=== PATIENT | female | born 2000 | race Two or more races ===

== ENCOUNTER 2023-02-14 11:34 | Emergency (ER) | payer OTHER ==
[~2023-02-14] VITALS: Ht 170.2 cm; Wt 70.8 kg
== END 2023-02-14 14:27 | disposition home or self-care (01) ==
LOC: ER 11:34
DX: R21 Rash and other nonspecific skin eruption (principal)

== ENCOUNTER 2023-12-29 08:18 | Outpatient (CLI) | payer OTHER | END 2023-12-29 08:22 | disposition home or self-care (01) | LOC: PRENATAL 08:18 | PROVIDERS: ATTEND Obstetrics & Gynecology Maternal & Fetal Medicine | DX: O35.9XX0 Maternal care for (suspected) fetal abnormality and damage, unspecified, not applicable or unspecified (principal); O44.00 Complete placenta previa NOS or without hemorrhage, unspecified trimester; O35.3XX0 Maternal care for (suspected) damage to fetus from viral disease in mother, not applicable or unspecified; Z3A.20 20 weeks gestation of pregnancy ==

== ENCOUNTER 2024-02-23 13:36 | Outpatient (CLI) | payer OTHER | END 2024-02-23 13:38 | disposition home or self-care (01) | LOC: PRENATAL 13:36 | PROVIDERS: ATTEND Obstetrics & Gynecology Maternal & Fetal Medicine | DX: O26.849 Uterine size-date discrepancy, unspecified trimester (principal); Z3A.28 28 weeks gestation of pregnancy ==

== ENCOUNTER 2025-04-08 08:41 | Outpatient (CLI) | payer OTHER | END 2025-04-08 08:42 | disposition home or self-care (01) | LOC: PRENATAL 08:41 | PROVIDERS: ATTEND Obstetrics & Gynecology Maternal & Fetal Medicine | DX: O36.80X0 Pregnancy with inconclusive fetal viability, not applicable or unspecified (principal); Z36.82 Encounter for antenatal screening for nuchal translucency; Z14.8 Genetic carrier of other disease; Z3A.12 12 weeks gestation of pregnancy ==

== ENCOUNTER 2025-06-03 08:28 | Outpatient (CLI) | payer OTHER | END 2025-06-03 08:31 | disposition home or self-care (01) | LOC: PRENATAL 08:28 | PROVIDERS: ATTEND Obstetrics & Gynecology Maternal & Fetal Medicine | DX: O44.00 Complete placenta previa NOS or without hemorrhage, unspecified trimester (principal); O43.90 Unspecified placental disorder, unspecified trimester; Z3A.20 20 weeks gestation of pregnancy ==

== ENCOUNTER 2025-08-04 13:11 | Outpatient (CLI) | payer OTHER | END 2025-08-04 13:13 | disposition home or self-care (01) | LOC: PRENATAL 13:11 | PROVIDERS: ATTEND Obstetrics & Gynecology Maternal & Fetal Medicine | DX: O26.849 Uterine size-date discrepancy, unspecified trimester (principal); O43.90 Unspecified placental disorder, unspecified trimester; Z3A.30 30 weeks gestation of pregnancy ==

== ENCOUNTER 2025-09-09 09:07 | Outpatient (CLI) | payer OTHER | END 2025-09-09 09:08 | disposition home or self-care (01) | LOC: PRENATAL 09:07 | PROVIDERS: ATTEND Obstetrics & Gynecology Maternal & Fetal Medicine | DX: O26.849 Uterine size-date discrepancy, unspecified trimester (principal); O36.8130 Decreased fetal movements, third trimester, not applicable or unspecified; O43.90 Unspecified placental disorder, unspecified trimester; Z3A.34 34 weeks gestation of pregnancy ==

== ENCOUNTER 2025-10-10 09:36 | Inpatient (IN) | payer OTHER ==
[2025-10-10] VITALS (8 sets, daily range): BP systolic 109–144; BP diastolic 50–76
[~2025-10-10] VITALS: Ht 170.2 cm; Wt 92.5 kg
[2025-10-10] MEDS ORDERED: RINGERS SOLUTION,LACTATED 1,000 ML IV SCH (09:45)
[2025-10-10] MEDS ORDERED: OXYTOCIN 500 ML IV ONE (09:45)
[2025-10-10] MEDS ORDERED: AMPICILLIN SODIUM 2,000 MG VIAL IV ONE (09:45)
[2025-10-10 10:14] LABS: BASO % 0.2 % (0.1-1.2); EOS # 0.06 (0.04-0.54); EOS % 0.7 % (0.7-7.0); LYMPH # 1.64 (1.18-3.74); LYMPH % 18.3 % (19.3-53.1); MEAN PLATELET VOLUME 12.30 fl (9.4-12.4); MONO # 0.72 (0.24-0.82); MONO % 8.0 % (4.7-12.5); NEUT # 6.44 (1.56-6.13); NEUT % 72.0 % (34.0-71.1); RED CELL DISTRIBUTION WIDTH 13.4 % (11.6-14.4)
[2025-10-10 10:20] LABS: URINE APPEARANCE Clear; URINE BILIRRUBIN Negative (NEGATIVE); URINE BLOOD Negative; URINE COLOR Dark Yellow; URINE GLUCOSE Negative (NEGATIVE); URINE KETONE Negative (NEGATIVE); URINE LEUKOCYTE Trace; URINE NITRATE Negative; URINE PROTEIN Trace (NEGATIVE); URINE UROBILINOGEN 0.2 E.U./dl
[2025-10-10 10:32] LABS: URINE BACTERIA 797.9 uL (0.0-1933); URINE EPITHELIAL CELLS 99.6 uL (0.0-38.8); URINE RBC 2.7 uL (0.0-20.8); URINE WBC 27.2 uL (0.0-23.2)
[2025-10-10 10:46] LABS: URINE CAST 0.14 uL (0.0-1.40)
[2025-10-10 10:50] LABS: INR 0.95
[2025-10-10 11:05] LABS: ALT/SGPT 17.0 U/L (12-78); AST/SGOT 32.0 U/L (15-37); BILIRUBIN TOTAL 0.39 mg/dL (0.3-1.2); BUN CREA RATIO 17.0 (7.0-25.0); CREATININE SERUM 0.46 mg/dL (0.55-1.02); GFR 166.89; GLOBULINA 3.5 G/DL (2.4-3.5); GLUCOSE FASTING 74.0 mg/dL (65-100); OSMOLALITY SERUM 275.0 MOSM/KG (275-295)
[2025-10-10] MEDS ORDERED: AMPICILLIN SODIUM 1,000 MG VIAL IV SCH (13:00)
[2025-10-10] MEDS ORDERED: OXYTOCIN 10 UNITS/ML VIAL ONE (18:46)
[2025-10-10] MEDS ORDERED: CHLORHEXIDINE GLUCONATE 120 ML BOTTLE TOP ONE (18:46)
[2025-10-10] MEDS ORDERED: ERYTHROMYCIN BASE OPHT 1GM EACH TUBE OP ONE (18:46)
[2025-10-10] MEDS ORDERED: LIDOCAINE HCL 1% 10ML VIAL ONE (18:46)
[2025-10-10] MEDS ORDERED: OXYTOCIN 20 UNITS/1000ML RL PIGGYBAG IV ONE (18:46)
[2025-10-10] MEDS ORDERED: CHLORHEXIDINE GLUCONATE 120 ML BOTTLE TP SCH (20:30)
[2025-10-10] MEDS ORDERED: OXYTOCIN 1,000 ML IV SCH (20:30)
[2025-10-10] MEDS ORDERED: OXYTOCIN 10 UNITS/ML VIAL IM STA (20:30)
[2025-10-11 00:08] VITALS: BP 129/72
[2025-10-11 01:11] LABS: BASO % 0.2 % (0.1-1.2); EOS # 0.01 (0.04-0.54); EOS % 0.1 % (0.7-7.0); LYMPH # 1.44 (1.18-3.74); LYMPH % 8.4 % (19.3-53.1); MEAN PLATELET VOLUME 12.50 fl (9.4-12.4); MONO # 1.21 (0.24-0.82); MONO % 7.0 % (4.7-12.5); NEUT # 14.40 (1.56-6.13); NEUT % 83.8 % (34.0-71.1); RED CELL DISTRIBUTION WIDTH 13.2 % (11.6-14.4)
[2025-10-11 07:31] VITALS: BP 130/80
[2025-10-11 22:13] VITALS: BP 113/74
[2025-10-12 01:23] VITALS: BP 115/68
[2025-10-12 08:00] VITALS: BP 126/77
[2025-10-12 16:38] VITALS: BP 128/78
[2025-10-12] MEDS ORDERED: IBU800 MG PO (16:47)
[2025-10-12] MEDS ORDERED: SIMETHICONE125 M1 PO (16:47)
[2025-10-12] MEDS ORDERED: COLACE100 MG PO (16:47)
[2025-10-12] MEDS ORDERED: PRENATAL TABLE1 EAC1 PO (16:47)
== END 2025-10-12 17:31 | disposition home or self-care (01) | DRG 807 ==
LOC: LDR 09:36 → OB/GYN 20:28
PROVIDERS: ADMIT Obstetrics & Gynecology; ATTEND Obstetrics & Gynecology
PROC: 10E0XZZ Delivery of Products of Conception, External Approach (ICD-10-PCS; principal; 2025-10-10)
PROC: 0HQ9XZZ Repair Perineum Skin, External Approach (ICD-10-PCS; 2025-10-10)
PROC: 4A1HXCZ Monitoring of Products of Conception, Cardiac Rate, External Approach (ICD-10-PCS; 2025-10-10)
DX: O70.0 First degree perineal laceration during delivery (principal); Z37.0 Single live birth; Z3A.38 38 weeks gestation of pregnancy